=== PATIENT | male | born 1965 | race Caucasian/White ===

== ENCOUNTER 2020-01-20 12:03 | Outpatient (CLI) | payer BC, SELFPAY ==
--- NOTE | ~2020-01-20 | US_ITS ---
US venous doppler [facility] DATE: 01/20/2020 12:55 INDICATION: Right lower leg swelling TECHNIQUE: Real-time and color flow imaging and Doppler analysis of the veins of both lower extremiti es COMPARISON: None FINDINGS: The greater saphenous veins are patent. There is spontaneous and phasic flow and normal aug mentation and color flow signal and normal compression of the deep veins of both lower extremities. T here is no evidence of deep venous thrombosis of either leg. Bilateral venous reflux was observed. IMPRESSION: No evidence of deep venous thrombosis of the legs Bilateral lower extremity venous reflux Reviewed, dictated and finalized at [facility]. Reviewed, dictated and finalized at location B.
== END 2020-01-20 12:04 | disposition home or self-care (01) ==
PROVIDERS: Visit Provider Physician Assistant
DX: M79.604 Pain in right leg (principal); M79.89 Other specified soft tissue disorders
CPT/HCPCS: 93970

== ENCOUNTER → 2020-12-07 11:16 | Outpatient (CLI) | payer OTHER, SELFPAY ==
--- NOTE | ~2020-12-07 | XR_ITS ---
EXAMINATION: XR thoracic spine 3V DATE: 12/07/2020 12:14 INDICATION: Dorsalgia. TECHNIQUE: 3 views of thoracic spine were obtained. COMPARISON: None. FINDINGS: Bone alignment is normal. There is mild chronic anterior wedging of T11 and T12 vertebral b odies. Intervertebral disc heights are normal. There are bridging endplate osteophytes at most levels in the thoracic spine, consistent with diffuse idiopathic skeletal hyperostosis (DISH). IMPRESSION: 1. DISH. Reviewed, dictated and finalized at location A. IMPRESSION: 1. DISH.
--- NOTE | ~2020-12-07 | XR_ITS ---
EXAMINATION: XR lumbar spine 2-3V DATE: 12/07/2020 12:14 INDICATION: Dorsalgia. TECHNIQUE: 3 views of lumbar spine were obtained. COMPARISON: None. FINDINGS: There is 4 degrees dextrocurvature of lumbar spine. There is mild chronic anterior wedging of L1 vertebral body. There are endplate osteophytes at all lumbar levels. There is mildly decreased disc height at L1-L2. IMPRESSION: 1. Mild lumbar spondylosis. Reviewed, dictated and finalized at location A. IMPRESSION: 1. Mild lumbar spondylosis.
--- NOTE | ~2020-12-07 | XR_ITS ---
EXAMINATION: XR_CERV2-3V_CR DATE: 12/07/2020 12:14 INDICATION: Dorsalgia. TECHNIQUE: 3 views of cervical spine were obtained. COMPARISON: None. FINDINGS: Bone alignment is normal. Vertebral body heights and intervertebral disc heights are normal . The facet joints are unremarkable. Osseous central spinal canal is developmentally small in cervica l spine. No prevertebral soft tissue swelling. IMPRESSION: 1. Developmental cervical central canal stenosis. Reviewed, dictated and finalized at location A.
== END ==
PROVIDERS: PCP Family Medicine; Visit Provider Physician Assistant
DX: M54.9 Dorsalgia, unspecified (principal); M47.816 Spondylosis without myelopathy or radiculopathy, lumbar region; M48.14 Ankylosing hyperostosis [Forestier], thoracic region; M48.02 Spinal stenosis, cervical region
CPT/HCPCS: 72040; 72072; 72100

== ENCOUNTER 2021-02-06 11:22 | Outpatient (CLI) | payer OTHER, SELFPAY ==
--- NOTE | ~2021-02-06 | CT_ITS ---
EXAMINATION:CT lung screening DATE: 02/06/2021 11:51 INDICATION: Personal history of tobacco dependence. Current smoker with 35 pack year history. TECHNIQUE: Computed tomography (CT) of the chest was performed without intravenous contrast. Automate d exposure control and iterative reconstruction technique were employed. The dose-length product (DLP ) was 390.84 mGy-cm. COMPARISON: None. FINDINGS: There is mild emphysema. A calcified right lung nodule is consistent with old granulomatous disease. There are a few scattered 2 mm nodules in the lungs. No pleural effusion. The heart size is normal. There are coronary artery calcifications. No pericardial effusion. There is bilateral gyneco mastia. There are bridging endplate osteophytes at multiple levels in the spine, consistent with diff use idiopathic skeletal hyperostosis (DISH). There is mild chronic anterior wedging of multiple lower thoracic vertebral bodies. IMPRESSION: 1. Lung-RADS category 2: Benign appearance or behavior. Continue annual screening with noncontrast lo w-dose chest CT in 12 months. Reviewed, dictated and finalized at location A. IMPRESSION: 1. Lung-RADS category 2: Benign appearance or behavior. Continue annual screeni ng with noncontrast low-dose chest CT in 12 months.
== END 2021-02-06 11:23 | disposition home or self-care (01) ==
PROVIDERS: PCP Family Medicine; Visit Provider Family Medicine
DX: Z12.2 Encounter for screening for malignant neoplasm of respiratory organs (principal); Z87.891 Personal history of nicotine dependence
CPT/HCPCS: 71271

== ENCOUNTER 2021-07-06 06:53 | Outpatient (RCR) | payer OTHER, SELFPAY | END 2021-09-25 12:08 | disposition home or self-care (01) | LOC: ANHDMC 06:53 | PROVIDERS: PCP Family Medicine; Visit Provider Family Medicine | DX: E11.65 Type 2 diabetes mellitus with hyperglycemia (principal) | CPT/HCPCS: 99199 ==

== ENCOUNTER 2022-02-08 10:31 | Outpatient (CLI) | payer OTHER, SELFPAY ==
--- NOTE | ~2022-02-08 | CT_ITS ---
EXAMINATION:CT lung screening DATE: 02/08/2022 10:55 INDICATION: Personal history of tobacco dependence. Current smoker with 37 pack year history. TECHNIQUE: Computed tomography (CT) of the chest was performed without intravenous contrast. Automate d exposure control and iterative reconstruction technique were employed. The dose-length product (DLP ) was 302.69 mGy-cm. COMPARISON: Chest CT 02/06/2021 FINDINGS: There is mild emphysema. Calcified right lung nodules are consistent with old granulomatous disease. There are multiple 1-2 mm nodules in the lungs. No pleural effusion. The heart size is norm al. There are coronary artery calcifications. No pericardial effusion. There is bilateral gynecomasti a. There are bridging endplate osteophytes at multiple levels in the spine, consistent with diffuse i diopathic skeletal hyperostosis (DISH). IMPRESSION: 1. Lung-RADS category 2: Benign appearance or behavior. Continue annual screening with noncontrast lo w-dose chest CT in 12 months. Reviewed, dictated and finalized at location A. IMPRESSION: 1. Lung-RADS category 2: Benign appearance or behavior. Continue annual screeni ng with noncontrast low-dose chest CT in 12 months.
== END 2022-02-08 10:32 | disposition home or self-care (01) ==
PROVIDERS: PCP Family Medicine; Visit Provider Physician Assistant
DX: Z12.2 Encounter for screening for malignant neoplasm of respiratory organs (principal); Z87.891 Personal history of nicotine dependence
CPT/HCPCS: 71271

== ENCOUNTER 2022-12-28 00:09 | Day surgery (SDC) | payer OTHER, SELFPAY ==
[2022-12-19 09:09] VITALS: BMI 30.4
[2022-12-28 08:20] LABS: Glucose Point of Care 100 mg/dl (65-105)
[2022-12-28 08:21] VITALS: BP 126/73; PULSE 80; RESP 16; TEMP 36.1; O2SAT 98
[2022-12-28] MEDS: LACTATED RINGERS 1,000 ML 150 ML IV CONT (08:27)
--- NOTE | 2022-12-28 09:15 | WPDANESEPPF ---
Anes - Initial Pre Proc Eval Procedure: Operation Date: 12/28/22 09:00 Proposed Procedures p Colonoscopy - Bharath Ruiz MD Date/Time: 12/28/22 09:15 Surgeon: Bharath Ruiz MD Pre Op Diagnosis: hx colon polyps Patient Data Age: 57 Gender: M Height: 2.01 m Weight: 119.9 kg Last Vital Signs Temp 97 F L 12/28/22 08:21 Pulse 80 12/28/22 08:21 Resp 16 12/28/22 08:21 BP 126/73 12/28/22 08:21 Pulse Ox 98 12/28/22 08:21 O2 Del Method Room Air 12/28/22 08:21 Allergies Allergy/AdvReac Type Severity Reaction Status Date / Time Penicillins Allergy Unknown Unknown Verified 12/28/22 08:19 Home Medications Medication Instructions Recorded Confirmed Type carvedilol 25 mg tablet 25 mg PO Q12H 05/18/19 12/28/22 History rosuvastatin 20 mg tablet 20 mg PO DAILY 10/21/20 12/19/22 History spironolactone 25 mg tablet 25 mg PO DAILY 10/21/20 12/19/22 History pen needle, diabetic 31 gauge x #400 ea 05/17/21 10/01/22 Rx 5/16 (BD Ultra-Fine Short Pen Needle) sacubitril 49 mg-valsartan 51 mg 1 tablet PO BID #60 tabs 06/06/21 12/28/22 Rx tablet (Entresto) blood sugar diagnostic (OneTouch #400 ea 06/12/22 10/01/22 Rx Ultra Test strips) dulaglutide 4.5 mg/0.5 mL 4.5 mg (0.5 mL) subcut WEEKLY 09/06/22 12/19/22 Rx subcutaneous pen injector days #6 mL (Trulicity) varenicline 0.5 mg (11)-1 mg (42) See Rx Instructions PO PER PKG DIR 10/01/22 12/19/22 Rx tablets in a dose pack (Chantix #53 ea Starting Month Box) insulin glargine 100 unit/mL (3 65 unit (0.65 mL) subcut DAILY 11/14/22 12/19/22 Rx mL) subcutaneous pen (Lantus days #58.5 mL Solostar U-100 Insulin) naproxen 500 mg tablet 500 mg PO BID PRN pain #180 tabs 11/14/22 12/19/22 Rx metformin 500 mg tablet,extended 1,000 mg PO BID 90 days #360 tabs 11/16/22 12/19/22 Rx release 24 hr varenicline 1 mg tablet (Chantix 1 mg PO BID #56 tabs 11/16/22 12/19/22 Rx Continuing Month Box) empagliflozin 25 mg tablet See Rx Instructions .Route 11/19/22 12/28/22 Rx (Jardiance) .COMPLEX #90 tabs aspirin 81 mg tablet,delayed 81 mg PO DAILY 12/19/22 12/19/22 History release insulin lispro 100 unit/mL 20 unit subcut TID 12/19/22 12/19/22 History subcutaneous pen (Humalog KwikPen (U-100) Insulin) Laboratory Tests 12/28/22 08:18 POC Capillary Glucose 100 mg/dl (65-105) Patient hx anesthesia problems: none Family hx anesthesia problems: none Results Review: All pre-operative results and documents have been reviewed as part of the pre-operative evaluation. [facility] Past Medical History Medical History (Updated 10/01/22 @ 11:44 by Rolando Zavala MD) CAD (coronary artery disease) Chronic systolic CHF (congestive heart failure) Dilated cardiomyopathy Gynecomastia History of stress test (~2019) Hypertensive heart disease, benign, with CHF Obesity Right knee meniscal tear Surgical History Surgical History H/O removal of testicle History of meniscectomy of left knee History of orchiectomy, unilateral Hx of tonsillectomy Hx of umbilical hernia repair Status post carpal tunnel release Status post decompression of ulnar nerve Status post left rotator cuff repair Family History Family History Father Diabetes mellitus Hypertension Mother Diabetes mellitus Hypertension Family history of cardiovascular disease Other COPD (chronic obstructive pulmonary disease) Social History Social History Smoking packs per day: 0.75 Smoking cigarettes per day: 15.0 Years smoked: 40 Smoking pack-years: 30.00 Smoking status: Current every day smoker Tobacco type: cigarettes Second hand tobacco smoke exposure: No Additional smoking assessment comments: Trying to quit, taking Chantix Alcohol intake: current Drinks per
--- NOTE | 2022-12-28 09:20 | PM.HPGS ---
History of Present Illness History of Present Illness Consent: Risks, benefits, and alternatives have been discussed and questions answered. Patient agrees to proceed with procedure. Chief complaint: hx colon polyps Narrative: Yo Hamilton is a 57 year old male Presents for screening colonoscopy. Patient reports having had colon polyps on previous colonoscopy 5 years ago in [place]. Patient presents today for follow-up exam. No old records are available for review. Patient reports that his current weight appetite and bowel movements are normal. Patient denies abdominal pain. He has had no bleeding. Past medical history is significant for congestive heart failure and diabetes mellitus. Currently felt to be stable. Review of Systems Review of Systems: Review of systems noncontributory. [facility] Past Medical History Medical History (Updated 12/28/22 @ 09:22 by Bharath Ruiz MD) CAD (coronary artery disease) Chronic systolic CHF (congestive heart failure) Dilated cardiomyopathy Gynecomastia History of stress test (~2019) Hypertensive heart disease, benign, with CHF Obesity Right knee meniscal tear Surgical History Surgical History H/O removal of testicle History of meniscectomy of left knee History of orchiectomy, unilateral Hx of tonsillectomy Hx of umbilical hernia repair Status post carpal tunnel release Status post decompression of ulnar nerve Status post left rotator cuff repair Family History Family History Father Diabetes mellitus Hypertension Mother Diabetes mellitus Hypertension Family history of cardiovascular disease Other COPD (chronic obstructive pulmonary disease) Social History Social History Smoking packs per day: 0.75 Smoking cigarettes per day: 15.0 Years smoked: 40 Smoking pack-years: 30.00 Smoking status: Current every day smoker Tobacco type: cigarettes Second hand tobacco smoke exposure: No Additional smoking assessment comments: Trying to quit, taking Chantix Alcohol intake: current Drinks per week: 0 Alcohol use details: rare use 2 drinks per month Substance use: never Substance use type: does not use Lack of Transportation: No Lack of Food: Never True Current Housing: I Have Housing Concerned About Future Housing: No Difficulty Paying Gas/Electric Bills: No Difficulty Paying for Meds: YES Currently Unemployed: No Education: Trade/Vocational Certificate Difficulty w/ Childcare or Family Care: No Living arrangements: with family Occupation/Education: occupation Gender identity (if verbalized by the patient): Male Spiritual care concerns: No Meds Home Medications and Allergies Home Medications Medication Instructions Recorded Confirmed Type carvedilol 25 mg tablet 25 mg PO Q12H 05/18/19 12/28/22 History rosuvastatin 20 mg tablet 20 mg PO DAILY 10/21/20 12/19/22 History spironolactone 25 mg tablet 25 mg PO DAILY 10/21/20 12/19/22 History pen needle, diabetic 31 gauge x #400 ea 05/17/21 10/01/22 Rx /16 (BD Ultra-Fine Short Pen Needle) sacubitril 49 mg-valsartan 51 mg 1 tablet PO BID #60 tabs 06/06/21 12/28/22 Rx tablet (Entresto) blood sugar diagnostic (OneTouch #400 ea 06/12/22 10/01/22 Rx Ultra Test strips) dulaglutide 4.5 mg/0.5 mL 4.5 mg (0.5 mL) subcut WEEKLY 09/06/22 12/19/22 Rx subcutaneous pen injector days #6 mL (Trulicity) varenicline 0.5 mg (11)-1 mg (42) See Rx Instructions PO PER PKG DIR 10/01/22 12/19/22 Rx tablets in a dose pack (Chantix #53 ea Starting Month Box) insulin glargine 100 unit/mL (3 65 unit (0.65 mL) subcut DAILY 11/14/22 12/19/22 Rx mL) subcutaneous pen (Lantus days #58.5 mL Solostar U-100 Insulin) naproxen 500 mg tablet 500 mg PO BID PRN pain #180 tabs 11/14/22 12/19/22 Rx metf
[2022-12-28 09:50] VITALS: BP 103/67; PULSE 98; RESP 16; O2SAT 93
[2022-12-28 10:00] VITALS: BP 90/60; PULSE 96; RESP 16; O2SAT 96
[2022-12-28 10:01] LABS: Glucose Point of Care 110 mg/dl (65-105)
[2022-12-28 10:10] VITALS: BP 104/66; PULSE 96; RESP 16; O2SAT 96
== END 2022-12-28 10:22 | disposition home or self-care (01) ==
PROVIDERS: PCP Family Medicine; Visit Provider Internal Medicine Gastroenterology
PROC: 0DJD8ZZ Inspection of Lower Intestinal Tract, Via Natural or Artificial Opening Endoscopic (ICD-10-PCS; CPT 45378; principal; 2022-12-28 09:00)
DX: Z12.11 Encounter for screening for malignant neoplasm of colon (principal); D12.2 Benign neoplasm of ascending colon; D12.5 Benign neoplasm of sigmoid colon; K57.30 Diverticulosis of large intestine without perforation or abscess without bleeding; K64.8 Other hemorrhoids; I25.10 Atherosclerotic heart disease of native coronary artery without angina pectoris; I11.0 Hypertensive heart disease with heart failure; I50.22 Chronic systolic (congestive) heart failure; I42.0 Dilated cardiomyopathy; E66.9 Obesity, unspecified; Z68.29 Body mass index [BMI] 29.0-29.9, adult; F17.210 Nicotine dependence, cigarettes, uncomplicated; Z79.899 Other long term (current) drug therapy; Z79.4 Long term (current) use of insulin; Z79.84 Long term (current) use of oral hypoglycemic drugs; Z79.82 Long term (current) use of aspirin
CPT/HCPCS: 45385; 82948; 88305; J7120

== ENCOUNTER → 2023-02-14 09:33 | Outpatient (CLI) | payer OTHER, SELFPAY ==
--- NOTE | ~2023-02-14 | CT_ITS ---
CT Scan of the Chest without Contrast: Clinical Indication: Lung cancer screening, personal history of nicotine dependence Technique: Contiguous sections were acquired throughout the chest without intravenous contrast. Dose reduction technique was used on this scan by utilizing automated exposure control and iterative recon struction technique. The dose-length product (DLP) was 342.74 mGy-cm. COMPARISON: 02/08/2022 and 02/06/2021 Findings: There is no evidence of any significant mediastinal, hilar or axillary lymphadenopathy. Coronary geoffrey ry calcifications are present. There is no evidence of pleural or pericardial effusion. There are several scattered peripheral 2 mm nodules. Images through the upper abdomen reveal no abnormalities. DISH of the thoracic spine noted. Impression: Lung RADS 2: Benign appearance. 12 month follow-up screening CT advised. Reviewed, dictated and finalized at [facility]. Impression: Lung RADS 2: Benign appearance. 12 month follow-up screening CT advised.
== END ==
PROVIDERS: PCP Family Medicine; Visit Provider Physician Assistant
DX: Z12.5 Encounter for screening for malignant neoplasm of prostate (principal); F17.210 Nicotine dependence, cigarettes, uncomplicated
CPT/HCPCS: 71271

== ENCOUNTER 2023-10-23 09:11 | Outpatient (CLI) | payer OTHER, SELFPAY ==
--- NOTE | 2023-10-23 12:44 | WPDPFTINT ---
PFT Procedure Performed PFT Procedure Performed Spirometry with Pre/Post Bronchodilator Plethysmography (Lung Vol) Diffusing Cap (DLCO) Flow Vol Loop PFT Interpretation Lung volumes were measured with the body plethysmography method. Lung volumes are unremarkable. Spirometry showed normal expiratory flow rates and a normal FEV1 to FVC ratio 72%. Following administration of a bronchodilator there was no significant increase in the expiratory flow rates. Lung diffusion capacity is within the normal range at 84% predicted. The flow-volume loop is unremarkable. Impression: Spirometry, lung volumes, and lung diffusion capacity all within the normal range.
== END 2023-10-23 09:12 | disposition home or self-care (01) ==
LOC: ANHPFT 09:16
PROVIDERS: PCP Family Medicine; Visit Provider Family Medicine
DX: R05.9 Cough, unspecified (principal); F17.200 Nicotine dependence, unspecified, uncomplicated
CPT/HCPCS: 94060; 94726; 94729

== ENCOUNTER 2023-11-04 13:47 | Outpatient (CLI) | payer OTHER, SELFPAY ==
[2023-11-04 14:54] LABS: Anion Gap 9 mmol/L (4-12); Blood Urea Nitrogen 25 mg/dL (9-20); Calcium 9.5 mg/dL (8.4-10.2); Carbon Dioxide 20 mmol/L (22-30); Chloride 111 mmol/L (98-107); Estimated Glomerular Filt Rate > 60; Glucose 124 mg/dL (65-110); Potassium 4.5 mmol/L (3.4-5.0); Sodium 140 mmol/L (137-145)
== END 2023-11-04 13:48 | disposition home or self-care (01) ==
PROVIDERS: PCP Family Medicine; Visit Provider Anesthesiology
DX: Z01.818 Encounter for other preprocedural examination (principal); E11.65 Type 2 diabetes mellitus with hyperglycemia; Z79.4 Long term (current) use of insulin
CPT/HCPCS: 36415; 80048

== ENCOUNTER 2023-11-07 02:31 | Day surgery (SDC) | payer OTHER, SELFPAY ==
[2023-10-30 13:54] VITALS: BMI 31.7
--- NOTE | 2023-10-30 14:03 | PC.NURSE ---
Report to the Outpatient Waiting Room, entrance under the green pavilion located off [facility], at time _0800_ on date _[id number]_. Planned Procedure Time: _1000_. Time changes happen often and if your time is changed the preop area will call you the afternoon before. - You and your visitor will be asked to self-screen and do not enter if you have any COVID symptoms. - A mask is optional within the hospital at this time. Patients may have clear liquids (water, carbonated beverages, clear teas, apple juice) until 3 hours prior to surgery with a maximum of 20 ounces. - No food from midnight until time of surgery Take the following medications with a SIP of water the morning of surgery: __Carvidilol DO NOT STOP ANY OF YOUR OTHER PRESCRIPTION MEDICATIONS PRIOR TO SURGERY ?EXCEPT THE FOLLOWING Medications to discontinue per physician None No insulin or diabetic meds morning of surgery. Please no make-up, nail iraqi, hairspray, perfume, deodorant, or body powder the day of surgery. No jewelry (including any body piercings) or valuables the day of surgery, leave them at home. Please take a shower or bath the night before, or the morning of, surgery with an antibacterial soap. Wear comfortable, loose fitting clothing. - Jewelry must be removed prior to entering the operating room. Rings and piercings that are not removed may be cut off. - The hospital will not accept responsibility for valuables. - Please leave all valuables, including medications, at home the day of surgery. If you are going home after surgery, a licensed power screwdriver operator must drive you home. - NO public transportation without another adult if you receive anesthesia. - We recommend that an adult stay with you for 24 hours following discharge. - We also recommend that you do not drive, make important decision, drink alcoholic beverages, or take any drugs that were not prescribed by your health care provider for at least 24 hours after your discharge time. Follow any additional instructions given to you from your surgeon. If you or anyone in your household have experienced Covid symptoms in the past week, please notify your surgeon or the nurse liaison at the phone number below for possible testing. Telephone instructions given to __Scott___and asked if any additional questions and then verbalized understanding. Patient advised to call surgeon office or pre surgery nurse liaison [phone] if any additional questions.
[2023-11-07] VITALS (8 sets, daily range): BP systolic 76–112; BP diastolic 50–75; PULSE 61–77; RESP 13–20; TEMP 36.1; O2SAT 97–100
--- NOTE | 2023-11-07 07:22 | WPDHPUPDATE1 ---
History and Physical Update Update Date/Time: 11/07/23 07:22 History and Physical has been reviewed, including an updated exam of the patient. There are NO changes in the patient's condition. Risks, benefits, and alternatives have been discussed and questions answered. Patient agrees to proceed with procedure.
[2023-11-07 08:53] LABS: Glucose Point of Care 179 mg/dl (65-105)
[2023-11-07] MEDS: LACTATED RINGERS 1,000 ML 30 ML IV CONT (08:58)
--- NOTE | 2023-11-07 09:29 | WPDANESEPPF ---
Anes - Initial Pre Proc Eval Procedure: Operation Date: 11/07/23 10:00 Proposed Procedures p Excisional Biopsy of Chronic Cysts on Back Times Two - Annie Cameron MD Date/Time: 11/07/23 09:29 Surgeon: Annie Cameron MD Pre Op Diagnosis: back cyst x2, Patient Data Age: 58 Gender: M Height: 1.93 m Weight: 118.2 kg Last Vital Signs Temp 97 F L 11/07/23 08:00 Pulse 77 11/07/23 08:00 BP 95/61 L 11/07/23 08:00 Pulse Ox 97 11/07/23 08:00 O2 Del Method Room Air 11/07/23 08:00 Allergies Allergy/AdvReac Type Severity Reaction Status Date / Time Penicillins Allergy Unknown Unknown Verified 10/30/23 13:49 Home Medications Medication Instructions Recorded Confirmed Type carvedilol 25 mg tablet 25 mg PO Q12H 05/18/19 10/30/23 History rosuvastatin 20 mg tablet 20 mg PO DAILY 10/21/20 10/30/23 History spironolactone 25 mg tablet 25 mg PO DAILY 10/21/20 10/30/23 History pen needle, diabetic 31 gauge x #400 ea 05/17/21 10/30/23 Rx 5/16 (BD Ultra-Fine Short Pen Needle) sacubitril 49 mg-valsartan 51 mg 1 tablet PO BID #60 tabs 06/06/21 10/30/23 Rx tablet (Entresto) aspirin 81 mg tablet,delayed 81 mg PO DAILY 12/19/22 10/30/23 History release insulin lispro 100 unit/mL 20 unit subcut TID 12/19/22 10/30/23 History subcutaneous pen (Humalog KwikPen (U-100) Insulin) varenicline 1 mg tablet (Chantix 1 mg PO BID #56 tabs 03/01/23 10/30/23 Rx Continuing Month Box) empagliflozin 25 mg tablet See Rx Instructions .Route 05/10/23 10/30/23 Rx (Jardiance) .COMPLEX #90 tabs insulin degludec 200 unit/mL (3 60 unit (0.3 mL) subcut DAILY 90 08/06/23 10/30/23 Rx mL) subcutaneous pen (Tresiba days #27 mL FlexTouch U-200 insulin) blood sugar diagnostic (OneTouch #400 ea 10/08/23 10/30/23 Rx Ultra Test strips) tirzepatide 7.5 mg/0.5 mL 7.5 mg (0.5 mL) subcut WEEKLY #2 mL 10/08/23 10/30/23 Rx subcutaneous pen injector (Jade) furosemide 20 mg tablet 20 mg PO DAILY 10/30/23 10/30/23 History naproxen 500 mg tablet 500 mg PO BID PRN pain #180 tabs 10/30/23 10/30/23 Rx Laboratory Tests 11/07/23 08:51 POC Capillary Glucose 179 H mg/dl (65-105) Patient hx anesthesia problems: none Family hx anesthesia problems: none Results Review: All pre-operative results and documents have been reviewed as part of the pre-operative evaluation. [facility] Past Medical History Medical History CAD (coronary artery disease) Chronic systolic CHF (congestive heart failure) Dilated cardiomyopathy Gynecomastia History of stress test (~2019) Hypertensive heart disease, benign, with CHF Obesity Right knee meniscal tear Surgical History Surgical History H/O removal of testicle History of meniscectomy of left knee History of orchiectomy, unilateral Hx of tonsillectomy Hx of umbilical hernia repair Status post carpal tunnel release Status post decompression of ulnar nerve Status post left rotator cuff repair Family History Family History Father Diabetes mellitus Hypertension Mother Diabetes mellitus Hypertension Family history of cardiovascular disease Other COPD (chronic obstructive pulmonary disease) Social History Social History Smoking packs per day: 0.75 Smoking cigarettes per day: 15.0 Years smoked: 14 Smoking pack-years: 10.50 Smoking status: Current every day smoker Tobacco type: cigarettes Second hand tobacco smoke exposure: No Additional smoking assessment comments: Trying to quit, taking Chantix Alcohol intake: current Drinks per week: 0 Alcohol use details: rare use 2 drinks per month Substance use: never Substance use type: does not use Do You Feel Safe in your Home?: Yes [place]
[2023-11-07] MEDS: ceFAZolin 2 GM/D5W 50 ML 2 GM/50 ML BAG IVPB (10:18)
[2023-11-07] MEDS: BUPIVACAINE/EPINEPHRINE 0.5% 10 ML VIAL 20 ML INFILTRATE (10:54)
[2023-11-07 11:13] LABS: Glucose Point of Care 161 mg/dl (65-105)
--- NOTE | 2023-11-07 11:19 | W.PM.PROC2 ---
Procedure Note - Detailed Date of Procedure 11/07/23 Pre-op Diagnosis cystic mass right posterior shoulder measuring 1.5 x 1 cm, cystic mass with chronic abscess cavity left mid back measuring 4 x 4 cm Post-op Diagnosis Same Procedure Performed excisional biopsy cystic mass right posterior shoulder measuring 1.5 x 1 cm, excisional biopsy cystic mass with chronic abscess cavity left mid back measuring 4 x 4 cm Surgeon Annie Cameron MD Anesthesia General and Local Indications 58-year-old male with multiple cystic masses in his back causing pain and chronic abscess. Currently, the 1 in his left mid back is draining purulent material. Findings Cystic mass right posterior shoulder with no signs and symptoms of active infection, cystic mass in left mid back ruptured with chronic abscess cavity Description of Procedure The patient was taken to the operating room and placed in the lateral position. After adequate induction of general anesthesia, patient was prepped and draped in the normal sterile fashion. A time-out was then done to verify the patient's identity, as well as the procedure being performed. The procedure was began by localizing both these areas. Once locally anesthetized, an elliptical incision was made over the cystic mass in the right show posterior shoulder. This mass was noted to measure approximately 1 and half by 1 cm. The mass was noted to be within the subcutaneous tissue and completely excised with the overlying dermis. There was no signs or symptoms of active infection. The cavity was copiously irrigated and hemostasis was gained with the Bovie cautery. The subcutaneous tissue was closed with 3-0 Vicryl suture. The skin was closed with 4-0 Monocryl subcuticular suture. Dermabond was placed on this wound. The mass in the left mid back was noted to be draining purulent material with pressure. An elliptical incision was made over the opening the mass. This was taken down through the dermis and into the subcutaneous tissue. A ruptured cystic mass was encountered at this point and a large abscess cavity. There was further purulent drainage. The cavity was noted to measure 4 x 4 cm. The overlying dermis and cystic contents were excised and sent to pathology for further review. I copiously irrigated the cavity and gained hemostasis with the Bovie cautery. Given the active infection, the decision was made to close the dermis loosely with interrupted mattress 3-0 nylon sutures. Sterile dressing was then placed. The procedure well and was extubated postoperatively. He will be transferred to the recovery room in stable condition. Estimated Blood Loss 10 Pathology Yes Complications No immediate complications Condition Stable Disposition PACU [facility] Billing Surgery - Charge Forward: Surgery Billing
== END 2023-11-07 12:21 | disposition home or self-care (01) ==
PROVIDERS: PCP Family Medicine; Visit Provider Surgery
PROC: (CPT 11402; principal; 2023-11-07 10:00)
DX: L02.212 Cutaneous abscess of back [any part, except buttock and flank] (principal); L72.0 Epidermal cyst; I25.10 Atherosclerotic heart disease of native coronary artery without angina pectoris; I11.0 Hypertensive heart disease with heart failure; I50.22 Chronic systolic (congestive) heart failure; I42.0 Dilated cardiomyopathy; E66.9 Obesity, unspecified; Z68.31 Body mass index [BMI] 31.0-31.9, adult; F17.210 Nicotine dependence, cigarettes, uncomplicated; Z79.82 Long term (current) use of aspirin; Z79.4 Long term (current) use of insulin; Z79.84 Long term (current) use of oral hypoglycemic drugs; Z79.85 Long-term (current) use of injectable non-insulin antidiabetic drugs
CPT/HCPCS: 11402 ×2; 12031; 36415; 80048; 82948; 88305; J0690; J2250; J2405; J2704; J3010; J7120

== ENCOUNTER 2024-04-07 09:37 | Outpatient (CLI) | payer OTHER, SELFPAY ==
[2024-04-07 12:03] LABS: Influenza A QL RT-PCR Negative (Negative); Influenza B QL RT-PCR Negative (Negative); RSV RNA, RT-PCR Negative (Negative); SARS-CoV-2 RNA PCR Negative (Negative)
== END 2024-04-07 09:38 | disposition home or self-care (01) ==
LOC: ANHLAB 09:39
PROVIDERS: PCP Family Medicine; Visit Provider Family Medicine
DX: R05.9 Cough, unspecified (principal)
CPT/HCPCS: 87637

== ENCOUNTER 2024-04-17 14:52 | Outpatient (CLI) | payer OTHER, SELFPAY ==
--- NOTE | ~2024-04-17 | CT_ITS ---
CT Scan of the Chest without Contrast: Clinical Indication: Lung cancer screening, nicotine dependence Technique: Contiguous sections were acquired throughout the chest without intravenous contrast. Dose reduction technique was used on this scan by utilizing automated exposure control and iterative recon struction technique. The dose-length product (DLP) was .00 mGy-cm. COMPARISON: 02/14/2023 Findings: There is no evidence of any significant mediastinal, hilar or axillary lymphadenopathy. Coronary geoffrey ry calcifications are present. There is no evidence of pleural or pericardial effusion. The lungs are clear. No pulmonary nodules or infiltrates are noted. Images through the upper abdomen reveal no abnormalities. Impression: Lung RADS 1: Negative. 12 month follow-up screening CT advised. Reviewed, dictated and finalized at location . Impression: Lung RADS 1: Negative. 12 month follow-up screening CT advised.
== END 2024-04-17 14:53 | disposition home or self-care (01) ==
LOC: MICIMG 14:52
PROVIDERS: PCP Family Medicine; Visit Provider Family Medicine
DX: Z12.2 Encounter for screening for malignant neoplasm of respiratory organs (principal); Z87.891 Personal history of nicotine dependence
CPT/HCPCS: 71271

== ENCOUNTER 2025-01-15 15:03 | Outpatient (CLI) | payer OTHER, SELFPAY ==
--- NOTE | ~2025-01-15 | XR_ITS ---
AP view of the pelvis and AP and lateral views of the left hip Clinical history: Pain Findings: No acute fracture or dislocation is seen. Osseous alignment is anatomic. Bilateral hip and SI joint spaces are preserved. Soft tissues are unremarkable. Impression: No significant abnormality is seen. Reviewed, dictated and finalized at [facility]. Impression: No significant abnormality is seen.
== END 2025-01-15 15:04 | disposition home or self-care (01) ==
PROVIDERS: PCP Family Medicine
DX: M79.18 Myalgia, other site (principal)
CPT/HCPCS: 73502

== ENCOUNTER 2025-05-05 09:19 | Outpatient (CLI) | payer OTHER, SELFPAY ==
--- NOTE | ~2025-05-05 | CT_ITS ---
EXAMINATION:CT lung screening DATE: 05/05/2025 09:31 INDICATION: Screening TECHNIQUE: Computed tomography (CT) of the chest was performed without intravenous contrast. The dose-length product (DLP) was 284.06 mGy-cm. COMPARISON: April 17, 2024 FINDINGS: No suspicious lung nodules or masses. No acute process involving lung cheema or mediastinal structures with noncontrast technique. Heart and great vessels normal size. No significant pericardial effusion or bulky lymphadenopathy. Moderately extensive coronary artery calcification and mild atherosclerotic vascular calcification. Mild bilateral gynecomastia noted. No acute process seen in the vision as portions of the upper abdomen, extrathoracic soft tissues or bony thorax. Calcification of the anterior longitudinal ligament throughout the thoracic spine may be associated with ankylosing spondylitis. IMPRESSION 1. No suspicious lung nodules. Lung RADS 1. Recommend follow-up low-dose lung cancer screening chest CT in 12 months. 2. Chronic findings as above. Reviewed, dictated and finalized at location [facility]. [facility] IMPRESSION 1. No suspicious lung nodules. Lung RADS 1. Recommend follow-up low-dose lung c ancer screening chest CT in 12 months. 2. Chronic findings as above.
== END 2025-05-05 09:20 | disposition home or self-care (01) ==
LOC: MICIMG 09:20
PROVIDERS: PCP Family Medicine; Visit Provider Family Medicine
DX: Z12.2 Encounter for screening for malignant neoplasm of respiratory organs (principal); Z87.891 Personal history of nicotine dependence
CPT/HCPCS: 71271